=== PATIENT | female | born 1950 ===

== ENCOUNTER 2016-12-21 07:17 | Emergency (ER) | payer SELFPAY ==
[2016-12-21 07:22] VITALS: PULSE 82; RESP 18; TEMP 98.7; O2SAT 98
[2016-12-21 07:23] VITALS: BP 188/82
--- NOTE | 2016-12-21 08:20 | C.PDOC ---
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 PATIENT WAS PREVIOUSLY DIAGNOSED RHEUMATOID ARTHRITIS. PATIENT NOTES NO IMPROVEMENT WITH TRAMADOL, NSAID AND PREDNISONE 5 MG X 1 WEEK. PATIENT STATES HAD PREVIOUS SIMILAR SX "BUT MORE INTENSE BEFORE" AND TOOK SAME MEDS X 3 WEEKS W IMPROVEMENT. PAIN LOCALIZED LEFT WRIST W MILD SWELLING "NOT BAD LAST TIME". NO TRAUMA. NO OTHER ASSOC SX EXAM MILD DIST NONTOXIC EXT R WRIST NEG. L WRIST +MILD SWELL ULNAR ASPECT WRIST W MILD LOCAL TEND. AROM WO DIFF. NO DEFORM. SKIN NEG NEURO INTACT MDM EXAC CHRONIC ARTHRALGIA. TYL #3, ADVISED NEED TO FU CLINIC FOR FURTHER MGMT Time Seen by Provider: 12/21/16 07:36 Chief Complaint (Nursing): Pain, Chronic History Per: Patient History/Exam Limitations: no limitations Past Medical History Reviewed: Historical Data, Nursing Documentation, Vital Signs Vital Signs: Last Vital Signs Temp 98.7 F 12/21/16 07:20 Pulse 82 12/21/16 07:20 Resp 18 12/21/16 07:20 BP 188/82 H 12/21/16 07:23 Pulse Ox 98 12/21/16 08:24 - Medical History PMH: Arthritis Family History: States: No Known Family Hx - Social History Hx Alcohol Use: No Hx Substance Use: No Review Of Systems Except As Marked, All Systems Reviewed And Found Negative. Constitutional: Negative for: Fever Gastrointestinal: Negative for: Nausea, Vomiting Musculoskeletal: Positive for: Hand Pain Neurological: Negative for: Weakness, Numbness Physical Exam - Physical Exam Appears: Non-toxic, No Acute Distress Skin: Warm, Dry, No Rash Extremity: Other (R WRIST NEG. L WRIST +MILD SWELL ULNAR ASPECT WRIST W MILD LOCAL TEND. AROM WO DIFF. NO DEFORM.) ED Course And Treatment O2 Sat by Pulse Oximetry: 98 Medical Decision Making Medical Decision Making: EXAC CHRONIC ARTHRALGIA. TYL #3, ADVISED NEED TO FU CLINIC FOR FURTHER MGMT Disposition Counseled Patient/Family Regarding: Diagnosis - Disposition Referrals: [facility] [Outside] [facility] [Outside] Disposition: HOME/ ROUTINE Disposition Time: 08:20 Condition: IMPROVED Prescriptions: Acetaminophen/Codeine [Tylenol/Codeine 300 MG/30 MG] 2 tab PO Q6H #20 tab predniSONE [Prednisone] 60 mg PO DAILY #12 tab Instructions: Chronic Pain (ED), Rheumatoid Arthritis (ED) Print Language: AMHARIC - Clinical Impression Clinical Impression: Chronic wrist pain - Scribe Statement Kalyani Braun All medical record entries made by the Scribe were at my direction and personally dictated by me. I have reviewed the chart and agree that the record accurately reflects my personal performance of the history, physical exam, medical decision making, and the department course for this patient. I have also personally directed, reviewed, and agree with the discharge instructions and disposition. Orthopedic Care Application Of:: Volar Splint (VELCRO)
[2016-12-21] MEDS ORDERED: Oxycodone/Acetaminophen 5/325 mg Tab PO STA (08:21)
[2016-12-21] MEDS ORDERED: Oxycodone/Acetaminophen 5/325 mg Tab ONE (08:28)
== END 2016-12-21 08:37 | disposition home or self-care (01) ==
LOC: C.ER 07:17
DX: M25.532 Pain in left wrist (principal); G89.29 Other chronic pain

== ENCOUNTER 2017-02-10 06:28 | Emergency (ER) | payer OTHER ==
[2017-02-10 06:44] VITALS: O2SAT 98
--- NOTE | 2017-02-10 07:42 | C.PDOC ---
History Of Present Illness 66 y/o female pmhx diabetes presents to the ED with complaints of new onset swelling to left hand and right foot. Pt was evaluated in August 2016 for pain to hands and feet, was told she had arthritis or possible diabetic neuropathy. Pt has had pain since but for the past week, has had swelling to bilateral hands L>R, and right foot. Pt is concerned her symptoms might be a reaction as the recently started taking gabapentin. Pt also taking simvastatin, lisinopril and naloxicam. Pt also reports occasional radiation of pain to left elbow and face tightness. She denies weakness, numbness, chest pain, abdominal pain, fever, chills, nausea, vomiting, diarrhea or any other complaints. Time Seen by Provider: 02/10/17 07:23 Chief Complaint (Nursing): Lower Extremity Problem/Injury History Per: Patient History/Exam Limitations: no limitations Onset/Duration Of Symptoms: Days Current Symptoms Are (Timing): Still Present Severity: Mild Recent travel outside of the [place]: No Past Medical History Reviewed: Historical Data, Nursing Documentation, Vital Signs Vital Signs: Last Vital Signs Temp 98.4 F 02/10/17 06:40 Pulse 80 02/10/17 06:40 Resp 20 02/10/17 06:40 BP 160/80 H 02/10/17 06:40 Pulse Ox 98 02/10/17 07:45 - Medical History PMH: Arthritis, HTN, Hypercholesterolemia Family History: States: Unknown Family Hx - Social History Hx Alcohol Use: No Hx Substance Use: No Review Of Systems Except As Marked, All Systems Reviewed And Found Negative. Constitutional: Negative for: Fever, Chills Cardiovascular: Negative for: Chest Pain Respiratory: Negative for: Shortness of Breath Gastrointestinal: Negative for: Nausea, Vomiting, Abdominal Pain, Diarrhea Musculoskeletal: Positive for: Other (chronic pain to bilateral hands and feet, swelling to left hand and right foot) Neurological: Negative for: Weakness, Numbness Physical Exam - Physical Exam Appears: Non-toxic, No Acute Distress Skin: Warm, Dry, No Rash Head: Atraumatic, Normacephalic Chest: Symmetrical Cardiovascular: Rhythm Regular Respiratory: Normal Breath Sounds, No Rales, No Rhonchi, No Wheezing Extremity: Normal ROM, No Tenderness, No Calf Tenderness, Capillary Refill (<2 seconds), No Deformity, Swelling (diffuse swelling to right foot and left hand) Pulses: Left Dorsalis Pedis: Normal, Right Dorsalis Pedis: Normal Neurological/Psych: Oriented x3, Normal Speech, Normal Cognition, Normal Motor, Normal Sensation ED Course And Treatment O2 Sat by Pulse Oximetry: 98 (room air) Pulse Ox Interpretation: Normal Disposition - Disposition Referrals: Clinic,Med Surg [Primary Care Provider] - Disposition: HOME/ ROUTINE Disposition Time: 08:05 Condition: STABLE Forms: Gen Discharge Inst Syriac - POA Present On Arrival: None - Clinical Impression Clinical Impression: Joint pain, Joint swelling - Scribe Statement The provider has reviewed the documentation as recorded by the Darian Phan Provider Attestation: All medical record entries made by the Darian were at my direction and personally dictated by me. I have reviewed the chart and agree that the record accurately reflects my personal performance of the history, physical exam, medical decision making, and the department course for this patient. I have also personally directed, reviewed, and agree with the discharge instructions and disposition.
[2017-02-10 08:10] VITALS: BP 165/78; PULSE 82; RESP 18; TEMP 97.8
== END 2017-02-10 08:14 | disposition home or self-care (01) ==
LOC: SUPCPDRO 06:28 → C.ER 06:28
DX: M25.442 Effusion, left hand (principal); M25.542 Pain in joints of left hand

== ENCOUNTER 2017-06-19 07:02 | Emergency (ER) | payer OTHER ==
[2017-06-19 07:03] VITALS: BMI 21.9
--- NOTE | 2017-06-19 07:44 | C.PDOC ---
History Of Present Illness 66 y/o female presents to ED with complaints of left lower leg swelling and pain for 2 weeks after falling and injuring leg. Patient denies loc, weakness, numbness, fever, chills or any other complaints at this time. Time Seen by Provider: 06/19/17 07:13 Chief Complaint (Nursing): Lower Extremity Problem/Injury History Per: Patient History/Exam Limitations: no limitations Onset/Duration Of Symptoms: Days Current Symptoms Are (Timing): Still Present - Hip Description Of Injury: Tripped - Knee Description Of Injury: Twisted Past Medical History Reviewed: Historical Data, Nursing Documentation, Vital Signs Vital Signs: Last Vital Signs Temp 97.7 F 06/19/17 07:07 Pulse 80 06/19/17 07:07 Resp 20 06/19/17 07:07 BP 178/107 H 06/19/17 07:07 Pulse Ox 98 06/19/17 08:01 - Medical History PMH: Arthritis, HTN, Hypercholesterolemia Surgical History: No Surg Hx Family History: States: No Known Family Hx - Social History Hx Alcohol Use: No Hx Substance Use: No Review Of Systems Eyes: Negative for: Vision Change Musculoskeletal: Positive for: Leg Pain, Foot Pain Skin: Negative for: Rash Neurological: Negative for: Weakness, Numbness Physical Exam - Physical Exam Appears: Non-toxic, No Acute Distress Skin: Normal Color, Warm, Dry, No Rash, No Ecchymosis Head: Atraumatic, Normacephalic Eye(s): bilateral: Normal Inspection, PERRL, EOMI Oral Mucosa: Moist Cardiovascular: Rhythm Regular Respiratory: Normal Breath Sounds Extremity: Tenderness (diffuse left ankle), Capillary Refill (<2 seconds), No Deformity, Swelling (Diffuse to left ankle), Other (Left ankle (+)ecchymosis) Extremity: Bilateral: Normal ROM Pulses: Left Dorsalis Pedis: Normal, Right Dorsalis Pedis: Normal Neurological/Psych: Oriented x3 Gait: Steady ED Course And Treatment O2 Sat by Pulse Oximetry: 98 (RA) Pulse Ox Interpretation: Normal - Other Rad No standard instances X-Ray: Interpreted by Me Interpretation: left ankle no fx Progress Note: Treated with tylenol 650 mg PO. Steve bandage and air cast applied. Discharged in stable condition Reassessment Condition: Improved Medical Decision Making Medical Decision Making: Plan: Left Ankle Xray, Tylenol ordered Disposition Counseled Patient/Family Regarding: Studies Performed, Diagnosis, Need For Followup - Disposition Referrals: [facility] [place] [Outside] Disposition: HOME/ ROUTINE Disposition Time: 08:15 Condition: GOOD Instructions: Ankle Sprain (ED) Forms: [facility] (Omani) - POA Present On Arrival: None - Clinical Impression Clinical Impression: Joint swelling, Ankle sprain - PA / RIVET THROWER / Resident Statement MD/DO has reviewed & agrees with the documentation as recorded. - Scribe Statement The provider has reviewed the documentation as recorded by the Leonardoibsameer Young All medical record entries made by the Darian were at my direction and personally dictated by me. I have reviewed the chart and agree that the record accurately reflects my personal performance of the history, physical exam, medical decision making, and the department course for this patient. I have also personally directed, reviewed, and agree with the discharge instructions and disposition.
--- NOTE | 2017-06-19 08:14 | RAD ---
PROCEDURE: Left Ankle Radiographs. HISTORY: pain COMPARISON: None FINDINGS: BONES: No fracture. JOINTS: Normal. No osteoarthritis. Ankle mortise maintained. Talar dome intact SOFT TISSUES: Anterior -dorsal arterial vascular calcifications present. OTHER FINDINGS: Achilles tendon insertional enthesophyte IMPRESSION: No fracture or destructive lesion. Anterior -dorsal arterial vascular calcifications present Achilles tendon insertional enthesophyte
[2017-06-19 08:16] VITALS: BP 161/83; PULSE 72; RESP 18; TEMP 97.9; O2SAT 100
== END 2017-06-19 08:24 | disposition home or self-care (01) ==
LOC: C.ER 07:02
DX: S93.402A Sprain of unspecified ligament of left ankle, initial encounter (principal); W01.0XXA Fall on same level from slipping, tripping and stumbling without subsequent striking against object, initial encounter; M25.472 Effusion, left ankle

== ENCOUNTER 2017-06-26 11:08 | Emergency (ER) | payer OTHER ==
[2017-06-26 11:08] VITALS: BMI 21.9
[2017-06-26] MEDS ORDERED: Sodium Chloride 0.9% 1,000 ML IV ONE (12:25)
[2017-06-26] MEDS ORDERED: Sodium Chloride 0.9% 1,000 ML ONE (12:30)
[2017-06-26 12:33] LABS: ALKALINE PHOSPHATASE 171 U/L (38-126); ALT/SGPT 42 U/L (9-52); AST/SGOT 28 U/L (14-36); BILIRUBIN,TOTAL 0.3 mg/dL (0.2-1.3); BLOOD UREA NITROGEN 19 mg/dL (7-17); CALCIUM 7.2 mg/dl (8.6-10.4); CARBON DIOXIDE 27 mmol/L (22-30); CHLORIDE 97 mmol/L (98-107); GFR AFRICAN-AMERICAN > 60; GLUCOSE,RANDOM 158 mg/dL (65-105); POTASSIUM 3.7 mmol/L (3.6-5.2); SODIUM 131 mmol/L (132-148); TOTAL PROTEIN 7.2 g/dL (6.3-8.3)
[2017-06-26] MEDS ORDERED: Albuterol HFA 90 mcg/actuation (8 g) INH STA (12:33)
[2017-06-26 12:34] LABS: BASO % 0.2 % (0.0-2.0); EOS % 0.1 % (0.0-4.0); HEMATOCRIT 38.8 % (34.0-47.0); LYMPH # 0.7 K/uL (1.0-4.3); LYMPH % 6.7 % (20.0-40.0); MEAN CELL VOLUME 84.4 fL (81.0-99.0); MEAN CORPUSCULAR HEMOGLOBIN 27.2 pg (27.0-31.0); MEAN CORPUSCULAR HGB CONC 32.2 g/dL (33.0-37.0); MONO # 0.4 K/uL (0.0-0.8); MONO % 3.5 % (0.0-10.0); PLATELET COUNT 326 K/uL (130-400); RED CELL DISTRIBUTION WIDTH 15.1 % (11.5-14.5); WHITE BLOOD COUNT 11.1 K/uL (4.8-10.8)
[2017-06-26 12:35] LABS: ALB/GLOB RATIO 0.9 (1.0-2.1)
--- NOTE | 2017-06-26 12:40 | C.PDOC ---
History Of Present Illness 66 year old female with PMHx of DM type 2 and rheumatoid arthritis presents to the ED c/o cough associated with pleuritic CP for the past 3-4 days. Patient also reports generalized body aches, nasal congestion, today she started feeling pain urinating, urinary frequency. Patient denies weakness, numbness, headache, back pain. Chief Complaint (Nursing): Chest Pain History Per: Patient History/Exam Limitations: no limitations Onset/Duration Of Symptoms: Hrs Current Symptoms Are (Timing): Still Present Quality: "Pain" Modifying Factors: None Exacerbating Factors: None Alleviating Factors: None Recent travel outside of the [place]: No Additional History Per: Patient Past Medical History Reviewed: Historical Data, Nursing Documentation, Vital Signs Vital Signs: Last Vital Signs Temp 98.9 F 06/26/17 12:51 Pulse 94 H 06/26/17 12:51 Resp 18 06/26/17 14:11 BP 171/74 H 06/26/17 12:51 Pulse Ox 96 06/26/17 13:48 - Medical History PMH: Arthritis, HTN, Hypercholesterolemia Surgical History: No Surg Hx Family History: States: Unknown Family Hx - Social History Hx Alcohol Use: No Hx Substance Use: No - Immunization History Hx Tetanus Toxoid Vaccination: No Hx Influenza Vaccination: No Hx Pneumococcal Vaccination: No Review Of Systems Constitutional: Negative for: Fever, Chills ENT: Positive for: Nose Congestion Cardiovascular: Positive for: Chest Pain. Negative for: Palpitations Respiratory: Positive for: Cough, Shortness of Breath Genitourinary: Positive for: Dysuria, Frequency Musculoskeletal: Negative for: Neck Pain, Back Pain Skin: Negative for: Rash Neurological: Negative for: Weakness, Numbness, Headache, Dizziness Physical Exam - Physical Exam Appears: Non-toxic, No Acute Distress Skin: Normal Color, Warm, Dry Head: Atraumatic, Normacephalic Nose: No Discharge Oral Mucosa: Moist Throat: Normal, No Erythema, No Exudate Neck: Normal ROM, Supple Chest: Symmetrical Cardiovascular: Rhythm Regular, No Murmur Respiratory: Wheezing (Scatter expiratory) Gastrointestinal/Abdominal: Soft, No Tenderness, No Distention, No Rebound Extremity: Normal ROM, No Pedal Edema, No Calf Tenderness, No Swelling Neurological/Psych: Oriented x3, Normal Speech, Normal Cognition Gait: Steady ED Course And Treatment - Laboratory Results Result Diagrams: 06/26/17 12:18 06/26/17 12:18 O2 Sat by Pulse Oximetry: 96 (On RA) Pulse Ox Interpretation: Normal Medical Decision Making Medical Decision Making: Impression : Due to pt DM will do a cardaic work up for her CP, could be viral. Will also check her for UTI Plan: * EKG * Blood work * Pyridium 100 mg PO * IV fluids * Nebulizer treatment Patients CXR came back showing no signs of acute disease, blood work showed minimal WBC elevation, waiting on UA results to come back. Disposition - Disposition Referrals: [facility] [Outside] Disposition: HOME/ ROUTINE Disposition Time: 14:34 Condition: FAIR Prescriptions: Amoxicillin/Clavulanate [Augmentin 875 MG-125 MG] 1 tab PO BID #14 tab Benzonatate [Tessalon Perles] 100 mg PO BID #14 sgl Instructions: Acute Bronchitis (ED), Bronchospasm (ED) Forms: Gen Discharge Inst Georgian, [facility] (Gibraltarian) Print Language: PORTUGUESE - Clinical Impression Clinical Impression: Bronchitis - Scribe Statement The provider has reviewed the documentation as recorded by the Scribe Car Campoverde All medical record entries made by the Scribe were at my direction and personally dictated by me. I have reviewed the chart and agree that the record accurately reflects my personal performance of the history, physical exam, medical decision making, and the department course for this patient. I have also personally directed, reviewed, and agree with the discharge instructions and disposition.
[2017-06-26 12:51] VITALS: BP 171/74; PULSE 94; RESP 18
[2017-06-26 12:54] LABS: NEUTROPHIL 87 % (50-75); TOTAL CELLS COUNTED 100
[2017-06-26 12:58] VITALS: TEMP 98.9
[2017-06-26] MEDS ORDERED: Albuterol 0.083% Inhal Sol (2.5 mg/3 mL) UD ONE (13:01)
--- NOTE | 2017-06-26 13:08 | RAD ---
HISTORY: Sepsis Patient COMPARISON: None available. TECHNIQUE: Chest, one view. FINDINGS: Examination limited by habitus. LUNGS: No focal consolidation. Please note that chest x-ray has limited sensitivity for the detection of pulmonary masses. PLEURA: No significant pleural effusion identified. No definite pneumothorax . CARDIOVASCULAR: The cardiomediastinal silhouette appears within normal limits of size. OSSEOUS STRUCTURES: No acute osseous abnormality identified. VISUALIZED UPPER ABDOMEN: Unremarkable. OTHER FINDINGS: None. IMPRESSION: No focal consolidation, significant pleural effusion, or definite pneumothorax identified.
[2017-06-26 13:40] LABS: RBC URINE 1 /hpf (0-3); URINE BILIRUBIN NEGATIVE (NEGATIVE); URINE BLOOD NEGATIVE (NEGATIVE); URINE COLOR Yellow (YELLOW); URINE GLUCOSE (UA) 1+ mg/dL (Normal); URINE KETONE NEGATIVE (NEGATIVE); URINE LEUKOCYTE ESTERASE NEG Leu/uL (Negative); URINE PROTEIN 3+ mg/dL (NEGATIVE); URINE UROBILINOGEN NORMAL mg/dL (0.2-1.0); WBC URINE 1 /hpf (0-5)
[2017-06-26 13:48] VITALS: O2SAT 96
--- NOTE | 2017-06-29 09:37 | CARD ---
APPROVED REPORT EKG Measurement Heart [id number] <Conclusion> Normal sinus rhythm Left axis deviation Right bundle branch block Abnormal ECG
== END 2017-06-26 14:12 | disposition home or self-care (01) ==
LOC: C.ER 11:08
DX: J40 Bronchitis, not specified as acute or chronic (principal); E11.9 Type 2 diabetes mellitus without complications; E78.00 Pure hypercholesterolemia, unspecified; I10 Essential (primary) hypertension; M06.9 Rheumatoid arthritis, unspecified
CPT/HCPCS: 71010; 80053; 81001; 82948; 84484; 85025; 93005; 96360; 99285; J7040